=== PATIENT | female | born 1965 | race African-American/Black ===

== ENCOUNTER 2017-06-05 11:17 | Emergency (ER) | payer MEDICARE, OTHER ==
--- NOTE | 2017-06-05 12:18 | ER Document Report ---
HPI - HPI Patient complains to provider of: right shoulder pain Onset: Other Onset/Duration: Sudden Quality of pain: Achy Severity: Moderate Pain Level: 3 Context: Patient states she fell 2-1/2 weeks ago hitting her right shoulder. Complains of continued pain, although she states pain is less than what it was. Did not see her primary care physician. Associated Symptoms: None Exacerbated by: Movement Relieved by: Denies Similar symptoms previously: No Recently seen / treated by doctor: No - ROS ROS below otherwise negative: Yes Systems Reviewed and Negative: Yes All other systems reviewed and negative - CONSTITUTIONAL Constitutional: DENIES: Fever - EENT EENT: DENIES: Congestion - NEURO Neurology: DENIES: Headache - CARDIOVASCULAR Cardiovascular: DENIES: Chest pain - RESPIRATORY Respiratory: DENIES: Trouble Breathing - GASTROINTESTINAL Gastrointestinal: DENIES: Abdominal Pain - REPRODUCTIVE Reproductive: DENIES: : - MUSCULOSKELETAL Musculoskeletal: REPORTS: Extremity pain - right shoulder - DERM Skin Color: Normal Skin Problems: None Past Medical History - General Information source: Patient - Social History Smoking Status: Current Every Day Smoker Cigarette use (# per day): Yes Frequency of alcohol use: Occasional Drug Abuse: None Lives with: Family Family History: Other - Multiple family members have same complaints - Past Medical History Cardiac Medical History: Reports: Hx Hypercholesterolemia, Hx Hypertension Endocrine Medical History: Reports: Hx Diabetes Mellitus Type 2 Musculoskeltal Medical History: Reports Hx Arthritis, Reports Hx Musculoskeletal Deformity, Reports Hx Musculoskeletal Trauma Traumatic Medical History: Reports: Hx Fractures Past Surgical History: Reports: Hx Section - 2, Hx Neurologic Surgery - cyatic nerve, Hx Orthopedic Surgery - back surgery - Immunizations Immunizations up to date: Yes Hx Diphtheria, Pertussis, Tetanus Vaccination: Yes Vertical Provider Document - CONSTITUTIONAL Agree With Documented VS: Yes Exam Limitations: No Limitations General Appearance: WD/WN, No Apparent Distress - INFECTION CONTROL TRAVEL OUTSIDE OF THE [place] IN LAST 30 DAYS: No - HEENT HEENT: Atraumatic, Normocephalic - NECK Neck: Normal Inspection, Supple - RESPIRATORY Respiratory: Breath Sounds Normal, No Respiratory Distress O2 Sat by Pulse Oximetry: 100 - CARDIOVASCULAR Cardiovascular: Regular Rate, Regular Rhythm - MUSCULOSKELETAL/EXTREMETIES Musculoskeletal/Extremeties: Tender - right shoulder joint, pain with ROM, No Edema. negative: Eccymosis - NEURO Level of Consciousness: Awake, Alert, Appropriate - DERM Integumentary: Warm, Dry, No Rash Course - Re-evaluation Re-evalutation: 06/05/17 13:05 X-rays negative and discussed with patient - Vital Signs Vital signs: Temp Pulse Resp BP Pulse Ox 98.0 F 109 H 18 134/94 H 100 06/05/17 11:23 06/05/17 11:23 06/05/17 11:23 06/05/17 11:23 06/05/17 11:23 Discharge - Discharge Clinical Impression: Contusion of right shoulder Qualifiers: Encounter type: initial encounter Qualified Code(s): S40.011A - Contusion of right shoulder, initial encounter Condition: Good Disposition: HOME, SELF-CARE Additional Instructions: Ice or heat packs to sore area Ibuprofen as prescribed as needed for pain Follow-up with your doctor next week for recheck Return as needed Prescriptions: Ibuprofen 800 mg PO PRN PRN #20 tablet PRN Reason:
--- NOTE | 2017-06-05 12:56 | RADIOLOGY REPORT (SQ) ---
EXAM DESCRIPTION: SHOULDER RIGHT 2 OR MORE VIEWS COMPLETED DATE/TIME: 06/05/2017 12:45 pm REASON FOR STUDY: fall COMPARISON: None. NUMBER OF VIEWS: Three views. TECHNIQUE: Internal rotation, external rotation, and Y view images acquired of the right shoulder. LIMITATIONS: None. FINDINGS: MINERALIZATION: Normal. BONES: No acute fracture or dislocation. No worrisome bone lesions. JOINTS: No glenohumeral dislocation. Acromioclavicular joint unremarkable VISUALIZED LUNGS AND RIBS: No pneumothorax. No rib fracture. SOFT TISSUES: No radiopaque foreign body. OTHER: No other significant finding. IMPRESSION: NEGATIVE STUDY OF THE RIGHT SHOULDER. NO RADIOGRAPHIC EVIDENCE OF ACUTE INJURY. TECHNICAL DOCUMENTATION: JOB ID: [id number] [employer]- All Rights Reserved
[2017-06-05 14:08] VITALS: BP 132/90
== END 2017-06-05 13:45 | disposition home or self-care (01) ==
LOC: ER 11:17
DX: S40.011A Contusion of right shoulder, initial encounter (principal); M25.511 Pain in right shoulder; W19.XXXA Unspecified fall, initial encounter; F17.210 Nicotine dependence, cigarettes, uncomplicated
CPT/HCPCS: 99283

== ENCOUNTER 2020-01-17 16:37 | Inpatient (IN) | payer MEDICARE, OTHER ==
--- NOTE | 2020-01-17 16:53 | ER Document Report ---
ED Medical Screen (RME) - General Stated Complaint: POSSIBLE ALLERGIC REACTION Time Seen by Provider: 01/17/20 16:44 Primary Care Provider: RAINE WILD FNP [Primary Care Provider] - Follow up as needed Mode of Arrival: Ambulatory Information source: Patient Notes: Patient is a 54-year-old female presenting to the emergency department with concerns for an allergic reaction. Upon interviewing patient patient actually has signs and symptoms of a stroke. Patient reports she has numbness to the entire right side of her body from her face all the way down into her upper extremity and lower extremity all on the right side. She reports this is been present for approximately 3 days. She thought that this may have been related to eating crab cakes although she ate crab cakes after the onset of symptoms and she has never had a reaction to seafood in the past. She does have slurred speech, she does have a slight right-sided facial droop and has altered sensation on her right side as outlined above. I have greeted and performed a rapid initial assessment of this patient. A comprehensive ED assessment and evaluation of the patient, analysis of test results and completion of the medical decision making process will be conducted by additional ED providers. I have specifically instructed the patient or family members with the patient to immediately return to any nursing staff should anything change in the patient's condition or with their chief complaint. TRAVEL OUTSIDE OF THE [place] IN LAST 30 DAYS: No - Related Data Allergies/Adverse Reactions: lisinopril [Lisinopril] Allergy (Verified 06/05/17 11:22) Edema mushrooms Allergy (Unknown, Uncoded 06/05/17 11:22) Past Medical History - Past Medical History Cardiac Medical History: Reports: Hx Hypercholesterolemia, Hx Hypertension Endocrine Medical History: Reports: Hx Diabetes Mellitus Type 2 Renal/ Medical History: Denies: Hx Peritoneal Dialysis Musculoskeltal Medical History: Reports Hx Arthritis, Reports Hx Musculoskeletal Deformity, Reports Hx Musculoskeletal Trauma Traumatic Medical History: Reports: Hx Fractures Past Surgical History: Reports: Hx Section - 2, Hx Neurologic Surgery - cyatic nerve, Hx Orthopedic Surgery - back surgery - Immunizations Immunizations up to date: Yes Hx Diphtheria, Pertussis, Tetanus Vaccination: Yes Physical Exam - Vital signs Vitals: Temp Pulse Resp BP Pulse Ox 98.3 F 107 H 20 147/95 H 99 01/17/20 16:44 01/17/20 16:44 01/17/20 16:44 01/17/20 16:44 01/17/20 16:44 Course - Vital Signs Vital signs: Temp Pulse Resp BP Pulse Ox 98.3 F 107 H 20 147/95 H 99 01/17/20 16:44 01/17/20 16:44 01/17/20 16:44 01/17/20 16:44 01/17/20 16:44 Doctor's Discharge - Discharge Referrals: RAINE WILD FNP [Primary Care Provider] - Follow up as needed
--- NOTE | 2020-01-17 17:13 | ER Document Report ---
ED Neuro Symptoms/Deficit - General Chief Complaint: S/S of Possible Stroke Stated Complaint: POSSIBLE ALLERGIC REACTION Time Seen by Provider: 01/17/20 16:44 Primary Care Provider: RAINE WILD FNP [Primary Care Provider] - Follow up as needed Mode of Arrival: Ambulatory Notes: 84-year-old female presents with 4-day history of right face arm and leg numbness. The patient states she thought she was having an allergic reaction to crab cakes. She did however state after reflecting on this that she started having symptoms before. Complained of a little bit of numbness around the face that is progressed to the arm and leg. There is been going on now for 4 days and the patient figured she should have it checked. She denies any headache. Complains of numbness and tingling to the right face, right arm and right leg. Denies any weakness or trouble walking. Denies any trouble talking or mentating. The patient denies chest pain denies shortness of breath. Speaking with the patient states she is never had a stroke before but she stated for about 4 months prior she had occasional left face tingling that comes and goes but does not stay for any appreciable period of time. The patient denies any falls trauma or head injuries. Denies any illicit drug use. Nothing makes it better or worse. TRAVEL OUTSIDE OF THE [place] IN LAST 30 DAYS: No - Related Data Allergies/Adverse Reactions: lisinopril [Lisinopril] Allergy (Verified 06/05/17 11:22) Edema mushrooms Allergy (Unknown, Uncoded 06/05/17 11:22) Past Medical History - General Information source: Patient - Social History Smoking Status: Current Every Day Smoker Family History: Other - Multiple family members have same complaints Patient has suicidal ideation: No Patient has homicidal ideation: No - Past Medical History Cardiac Medical History: Reports: Hx Hypercholesterolemia, Hx Hypertension Endocrine Medical History: Reports: Hx Diabetes Mellitus Type 2 Renal/ Medical History: Denies: Hx Peritoneal Dialysis Musculoskeletal Medical History: Reports Hx Arthritis, Reports Hx Musculoskeletal Deformity, Reports Hx Musculoskeletal Trauma Traumatic Medical History: Reports: Hx Fractures Past Surgical History: Reports: Hx Section - 2, Hx Neurologic Surgery - cyatic nerve, Hx Orthopedic Surgery - back surgery - Immunizations Immunizations up to date: Yes Hx Diphtheria, Pertussis, Tetanus Vaccination: Yes Review of Systems - Review of Systems Constitutional: No symptoms reported EENT: No symptoms reported Cardiovascular: No symptoms reported Respiratory: No symptoms reported Gastrointestinal: No symptoms reported Genitourinary: No symptoms reported Female Genitourinary: No symptoms reported Musculoskeletal: No symptoms reported Neurological/Psychological: Numbness, Tingling. denies: Weakness, Loss of power, Headaches -: Yes All other systems reviewed and negative Physical Exam - Vital signs Vitals: Temp Pulse Resp BP Pulse Ox 98.3 F 107 H 20 147/95 H 99 01/17/20 16:44 01/17/20 16:44 01/17/20 16:44 01/17/20 16:44 01/17/20 16:44 - Notes Notes: GENERAL_APPEARANCE: well_nourished, alert, cooperative VITALS: reviewed, see vital signs table. HEAD: no_swelling\\tenderness on the head. EYES: PERRL, EOMI, conjunctiva_clear. NOSE: no_nasal_discharge. MOUTH: (-)decreased moisture. THROAT: no_tonsilar_inflammation, no_airway_obstruction. no_lymphadenopathy NECK: supple, no_neck_tenderness, (-)thyromegaly. BACK: no_back_tenderness. CHEST_WALL: no_chest_tenderness. LUNGS: no_wheezing, no_rales, no_rhonchi, (-)accessory muscle use, good air exchange bilateral. HEART: normal_rate, normal_rhythm, normal_S1, normal_S2, (-)S3, (-)S4, no_murmur, no_rub. ABDOMEN: soft, no_abd_tenderness, (-)guarding, (-)rebound, no_organomegaly, no_abd_masses. EXTREMITIES: strength 5/5 in all_extremities, good pulses in all_extremities, no_swelling\\tenderness in the extremities, no_edema. SKIN: warm, dry, good_color, no_rash. MENTAL_STATUS: speech_clear, oriented_X_3, normal_affect, re sponds_appropriately to questions. NEURO: Subjective right face right arm and right leg numbness and tingling, neg Motor Deficits on exam, CN 2-12 intact, DTR 2+ symmetric x 4, No cerbellar signs NIH=1 due to mild loss of sensation on the right face right arm and right leg Course - Re-evaluation Re-evalutation: 01/17/20 17:14 The patient has been having Tums consistently for the last 4 days. The patient is not a candidate for TPA or interventional stroke care. Her stroke score is only 1 at this time due to the sensory deficiency. We will do a full stroke work-up. She has very mild symptoms and likely does not have any large vessel occlusions. The patient is not a very good historian. She tends to be very tangential. 01/17/20 20:[address] shows old infarcts. They do not see anything new. There is a small meningioma which is likely incidental. The patient likely has a completed infarct. The patient will need to be evaluated MRI in the morning echo cardiogram. 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 Patient will need to be started on dual antiplatelet therapy. Need to review the patient's blood pressure medicine regimen to be sure she is optimized to prevent any further episodes. - Vital Signs Vital signs: Temp Pulse Resp BP Pulse Ox 98.3 F 107 H 20 147/95 H 99 01/17/20 16:44 01/17/20 16:44 01/17/20 16:44 01/17/20 16:44 01/17/20 16:44 - Laboratory Result Diagrams: 01/17/20 17:38 01/17/20 17:38 - Diagnostic Test Radiology reviewed: Reports reviewed Radiology results interpreted by me: 01/17/20 20:57 Chest X-Ray 01/17/20 16:51 IMPRESSION: 1. No ACUTE RADIOGRAPHIC FINDING IN THE CHEST. 2. A new partially visualize posterior mediastinal mass on the left best seen on the PA image. Further evaluation with CT chest with IV contrast. Head CT 01/17/20 16:51 IMPRESSION: 1. No acute intracranial abnormality. 2. Very small old remote bilateral thalamic infarct. 3. A homogeneous right frontal lobe extra-axial sclerotic right frontal lobe mass. Considerations for this finding includes meningioma. 4. Chronic mild bilateral maxillary sinus disease. Small mucous retention cyst or polyp in the right maxillary sinus. EVIDENCE OF ACUTE STROKE: NO. Chest CT 01/17/20 19:03 IMPRESSION: 1. No suspicious mass in the lower chest as was questioned chest x-ray. No acute findings in the chest. 2. Diffusely enlarged partially visualized thyroid gland. Can be evaluated with ultrasound if clinically suspicious.. ED NIH Stroke Scale - NIH Stroke Scale *: 1. NIH scale should be completed with appropriate accompanying assessment tools. *: 2. The NIH should reflect what the patient is capable of doing and should not be coached by the clinician. 1a. Level of Consciousness: 0=Alert;keenly responsive -: 1=Drowsy -: 2=Obtunded -: 3=Coma/unresponsive or reflex to noxious stimuli. 1a. Responses: 0 1b. Orientation Questions: a. What month is it? -: b. How old are you? -: 0=Answers both questions correctly. -: 1=Answers one question correctly or patient is intubated or has orotracheal trauma. -: 2=Answers neither question correctly. 1b. Responses: 0 1c. Response to commands: a. Open and close eyes? -: b. [employer] Operator and release hand? -: Credit is given despite weakness. Demonstration of task is permitted. Substitute command if hands cannot be used. -: 0=Performs both tasks correctly -: 1=Performs one task correctly -: 2=Performs neither task correctly 1c. Responses: 0 2. Gaze: Establish eye contact and instruct patient to "Follow my finger" -: 0=Normal -: 1=Partial gaze palsy. Gaze is abnormal in one or both eyes, but where forced deviation or total gaze paresis is not present. -: 2=Forced deviation or total gaze paresis. 2. Responses: 0 3. Visual Betancourt: Sees fingers in all four quadrants. -: 0=No visual loss. -: 1=Partial hemianopsia. -: 2=Complete hemianopsia. -: 3=Bilateral hemianopsia (including Cortical blindness) 3. Responses: 0 4. Facial Movement: Instruct patient to: -: a. Show me your teeth -: b. Raise your eyebrows -: c. Close your eyes -: d. Smile -: 0=Normal symmetrical movement -: 1=Minor paralysis (flattened nasolabial fold, asymmetry on smiling). -: 2=Partial paralysis (total or near total paralysis of lower face). -: 3=Complete paralysis of upper and lower face 4. Responses: 0 5. Motor functions (left arm): Alternate sides and extend each arm with palms down (90 degrees if sitting or 45 degrees for supine). -: 0=No drift;limb holds for full 10 seconds. -: 1=Drift; limb holds but drifts down before full 10 seconds, but does not hit bed. -: 2=Some effort against gravity; limb cannot get to or maintain position. -: 3=No effort against gravity; limb falls. -: 4=No movement. -: UN=Amputation, joint fusion, explain in comments. 5. Responses (left arm): 0 5. Motor Functions (right arm): Alternate sides and extend each arm with palms down (90 degrees if sitting or 45 degrees for supine). -: 0=No drift;limb holds for full 10 seconds. -: 1=Drift; limb holds but drifts down before full 10 seconds, but does not hit bed. -: 2=Some effort against gravity; limb cannot get to or maintain position. -: 3=No effort against gravity; limb falls. -: 4=No movement. -: UN=Amputation, joint fusion, explain in comments. 5. Responses (right arm): 0 6. Motor Functions (left leg): With patient lying supine, alternate sides and extend each leg (30 degrees always while supine). -: 0=No drift, leg holds position for full 5 seconds -: 1=Drift; leg falls before full 5 seconds but does not hit bed. -: 2=Some effort against gravity, leg falls to bed but some effort against gravity. -: 3=No effort against gravity, leg falls to bed immediately. -: 4=No movement. -: UN=Amputation, joint fusion; explain in comments. 6. Responses (left leg): 0 6. Motor Functions (right leg): With patient lying supine, alternate sides and e xtend each leg (30 degrees always while supine). -: 0=No drift, leg holds position for full 5 seconds -: 1=Drift; leg falls before full 5 seconds but does not hit bed. -: 2=Some effort against gravity, leg falls to bed but some effort against gravity. -: 3=No effort against gravity, leg falls to bed immediately. -: 4=No movement. -: UN=Amputation, joint fusion; explain in comments. 6. Responses (right leg): 0 7. Limb Ataxia: With eyes open instruct patient to: -: a. "Touch your finger to your nose". -: b. "Touch your heel to your vizcarra" -: 0=Absent -: 1=Present in one limb. -: 2=Present in two limbs. -: UN=Amputation or joint fusion; explain in comments. 7. Responses: 0 8. Sensory: Test sensation using pinprick or noxious stimuli. Test as many body parts as possible. -: 0=Normal;no sensory loss -: 1=Mile to moderate sensory loss (patient feels pin prick but is less sharp on affected side). -: 2=Severe or total sensory loss. 8. Responses: 1 9. Best Language: Instruct patient to: -: a. "Describe what you see in this picture." -: b. "Name the items in this picture." -: c. "Read these sentences." -: 0=No aphasia, normal -: 1=Mild to moderate aphasia. -: 2=Severe aphasia -: 3=Mute, global aphasia, no usable speech or auditory comprehension. 9. Responses: 0 10. Articulation, Dysarthia: Instruct patient to: -: "Read these words" or "Repeat these words" -: 0=Normal -: 1=Mild to moderate; patient may slur some words but can be understood without difficulty. -: 2=Severe; patients speech so slurred as to be unintelligible in the absence of dysphasia. -: UN=Intubated or other physical barrier, explain in comments. 10. Responses: 0 11. Extinction or inattention: 0=No abnormality -: 1= Visual, tactile, auditory, spatial, or personal inattention or extinction to bilateral simulation in one or the sensory modalities. -: 2=Profound laquita-inattention or laquita-inattention to more than one modality; does not recognize own hand. 11. Responses: 0 Total Score: 1 Discharge - Discharge Clinical Impression: CVA (cerebral vascular accident) Qualifiers: CVA mechanism: other Qualified Code(s): I63.89 - Other cerebral infarction Condition: Good Disposition: ADMITTED OBSERVATION Admitting Provider: Juan (Hospitalist) Unit Admitted: Telemetry Referrals: RAINE WILD FNP [Primary Care Provider] - Follow up as needed
--- NOTE | 2020-01-17 17:16 | ER Document Report ---
Doctor's Note Notes: 01/17/20 17:15 Per radiologist no acute stroke noted on CT
--- NOTE | 2020-01-17 17:25 | RADIOLOGY REPORT (SQ) ---
EXAM DESCRIPTION: CT HEAD WITHOUT IMAGES COMPLETED DATE/TIME: 01/17/2020 5:00 pm REASON FOR STUDY: stroke alert COMPARISON: None. TECHNIQUE: Axial images acquired through the brain without intravenous contrast. Images reviewed wi th bone, brain and subdural windows. Additional sagittal and coronal reconstructions were generated. Images stored on PACS. All CT scanners at this facility use dose modulation, iterative reconstruction, and/or weight based d osing when appropriate to reduce radiation dose to as low as reasonably achievable (ALARA). [facility]: Dose Right [facility]: CareDose [facility]: Dose Right [facility]: Teradose 4D [facility]: Smart [employer] RADIATION DOSE: CT Rad equipment meets quality standard of care and radiation dose reduction techniq ues were employed. CTDIvol: 53.2 mGy. DLP: 964 mGy-cm. LIMITATIONS: None. FINDINGS: VENTRICLES: Normal size and contour. CEREBRUM: Very small old remote bilateral thalamic infarct. No masses. No hemorrhage. No midline shift. No evidence for acute infarction. CEREBELLUM: No masses. No hemorrhage. No alteration of density. No evidence for acute infarction. EXTRAAXIAL SPACES: No extra-axial fluid collections. ORBITS AND GLOBE: No intra- or extraconal masses. Normal contour of globe without masses. CALVARIUM: No fracture. An extra-axial day 9-10.0 mm homogeneous sclerotic right frontal lobe mass. Considerations for this finding includes meningioma. PARANASAL SINUSES: Mild mucoperiosteal thickening bilateral maxillary sinuses. Small mucous retenti on cyst or polyp in the right maxillary sinus. No fluid. SOFT TISSUES: No mass or hematoma. OTHER: Torus mandibular palatinus. IMPRESSION: 1. No acute intracranial abnormality. 2. Very small old remote bilateral thalamic infarct. 3. A homogeneous right frontal lobe extra-axial sclerotic right frontal lobe mass. Considerations f or this finding includes meningioma. 4. Chronic mild bilateral maxillary sinus disease. Small mucous retention cyst or polyp in the right maxillary sinus. EVIDENCE OF ACUTE STROKE: NO. COMMENT: 1. The results of this examination were discussed with emergency department provider on at 17:16 hours. Quality ID # [id number]: Final reports with documentation of one or more dose reduction techniques (e.g., Au tomated exposure control, adjustment of the mA and/or kV according to patient size, use of iterative reconstruction technique) TECHNICAL DOCUMENTATION: JOB ID: [id number] 2010 [employer]- All Rights Reserved Reading location - IP/workstation name: [email or web address]
--- NOTE | 2020-01-17 17:28 | RADIOLOGY REPORT (SQ) ---
EXAM DESCRIPTION: CHEST SINGLE VIEW IMAGES COMPLETED DATE/TIME: 01/17/2020 5:02 pm REASON FOR STUDY: stroke alert COMPARISON: None. EXAM PARAMETERS: NUMBER OF VIEWS: One view. TECHNIQUE: Single frontal radiographic view of the chest acquired. RADIATION DOSE: NA LIMITATIONS: None. FINDINGS: LUNGS AND PLEURA: No opacities, masses or pneumothorax. No pleural effusion. MEDIASTINUM AND HILAR STRUCTURES: A new partially visualized posterior mediastinum mass on the left best seen on the PA image. No masses. Contour normal. HEART AND VASCULAR STRUCTURES: Heart normal in size. Normal vasculature. BONES: No acute findings. HARDWARE: None in the chest. OTHER: No other significant finding. IMPRESSION: 1. No ACUTE RADIOGRAPHIC FINDING IN THE CHEST. 2. A new partially visualize posterior mediastinal mass on the left best seen on the PA image. Furt her evaluation with CT chest with IV contrast. TECHNICAL DOCUMENTATION: JOB ID: [id number] 2010 [employer]- All Rights Reserved Reading location - IP/workstation name: [email or web address]
[2020-01-17 17:54] LABS: INTERNATIONAL RATION (INR) 0.89
[2020-01-17 17:55] LABS: PARTIAL THROMBOPLASTIN TIME 26.7 SEC (23.5-35.8)
[2020-01-17 17:56] LABS: ABSOLUTE EOSINOPHILS # (AUTO) 0.2 10^3/uL (0.0-0.6); ABSOLUTE LYMPHOCYTES (AUTO) 1.7 10^3/uL (0.5-4.7); ABSOLUTE MONOCYTES (AUTO) 0.4 10^3/uL (0.1-1.4); ABSOLUTE NEUT (AUTO) 2.9 10^3/uL (1.7-8.2); BASOPHILS % (AUTO) 0.7 % (0-2); EOSINOPHILS % (AUTO) 4.1 % (0-6); HEMATOCRIT 39.5 % (36.0-47.0); HEMOGLOBIN 13.7 g/dL (12.0-15.5); MEAN CORPUSCULAR HEMOGLOBIN 30.8 pg (27.0-33.4); MEAN CORPUSCULAR HGB CONC 34.6 g/dL (32.0-36.0); MEAN CORPUSCULAR VOLUME 89 fl (80-97); MONOCYTES % (AUTO) 7.2 % (3-13); PLATELET COUNT 285 10^3/uL (150-450); RED BLOOD COUNT 4.45 10^6/uL (3.72-5.28); RED CELL DISTRIBUTION WIDTH 14.1 % (11.5-14.0); TOTAL CELLS COUNTED % (AUTO) 100 %; WHITE BLOOD COUNT 5.3 10^3/uL (4.0-10.5)
[2020-01-17 18:09] LABS: ALBUMIN 4.2 g/dL (3.5-5.0); ALKALINE PHOSPHATASE 129 U/L (38-126); ANION GAP 9 (5-19); ASPARTATE AMINO TRANSFERASE 22 U/L (14-36); BILIRUBIN,TOTAL 0.4 mg/dL (0.2-1.3); BLOOD UREA NITROGEN 15 mg/dL (7-20); CALCIUM 9.6 mg/dL (8.4-10.2); CARBON DIOXIDE 24 mmol/L (22-30); CHLORIDE 105 mmol/L (98-107); CREATINE KINASE 105 U/L (30-135); GLUCOSE 244 mg/dL (75-110); POTASSIUM 4.7 mmol/L (3.6-5.0); TOTAL PROTEIN 7.7 g/dL (6.3-8.2)
[2020-01-17 18:21] LABS: CREATINE KINASE MB 1.61 ng/mL (<4.55); TROPONIN I 0.018 ng/mL
[2020-01-17 19:07] LABS: APPEARANCE,URINE CLEAR; BILIRUBIN,URINE NEGATIVE (NEGATIVE); COLOR,URINE STRAW; GLUCOSE, URINE >=500 mg/dL (NEGATIVE); KETONES,URINE NEGATIVE (NEGATIVE); LEUKOCYTE ESTERASE,URINE NEGATIVE (NEGATIVE); NITRITE,URINE NEGATIVE (NEGATIVE); PROTEIN,URINE 30 mg/dL (NEGATIVE); URINE SPECIFIC GRAVITY 1.022; UROBILINOGEN,URINE NEGATIVE mg/dL (<2.0)
[2020-01-17] MEDS ORDERED: ASPIRIN 81 MG TABLET, CHEWABLE PO ONE (19:17)
[2020-01-17 19:21] LABS: URINE AMPHETAMINES SCREEN NEGATIVE; URINE BARBITURATES SCREEN NEGATIVE; URINE BENZODIAZEPINES SCREEN NEGATIVE; URINE COCAINE SCREEN NEGATIVE; URINE MARIJUANA (THC) SCREEN NEGATIVE; URINE METHADONE SCREEN NEGATIVE; URINE PHENCYCLIDINE SCREEN NEGATIVE
--- NOTE | 2020-01-17 20:29 | RADIOLOGY REPORT (SQ) ---
EXAM DESCRIPTION: CT chest with IV contrast. CLINICAL HISTORY: 54 years Female mass abnormal chest x-ray COMPARISON: Chest x-ray from today TECHNIQUE: Axial images with 100 mL of Omnipaque 350. Sagittal coronal reconstruction. This exam was performed according to our departmental dose-optimization program, which includes automated exposure control, adjustment of the mA and/or kV according to patient size and/or use of iterative reconstruction technique.. FINDINGS: Unremarkable Central pulmonary arteries. Nondilated aorta without dissection. No evidence for mediastinal adenopathy or pericardial effusion. Diffuse enlarged partially visualized bilateral thyroid. On the images provided the left facet appears larger. No suspicious lung or pleural abnormalities. No suspicious lower chest mass or upper abdominal mass. IMPRESSION: 1. No suspicious mass in the lower chest as was questioned chest x-ray. No acute findings in the chest. 2. Diffusely enlarged partially visualized thyroid gland. Can be evaluated with ultrasound if clinically suspicious..
[2020-01-17] MEDS ORDERED: MAGNESIUM HYDROXIDE SUSP 30 ML UDCUP PO PRN (21:29)
[2020-01-17] MEDS ORDERED: ONDANSETRON 4 MG TAB.RAPDIS PO PRN (21:29)
[2020-01-17] MEDS ORDERED: DOCUSATE SODIUM 100 MG CAPSULE PO PRN (21:29)
[2020-01-17] MEDS ORDERED: LORAZEPAM INJ 2 MG/1 ML VIAL IV PRN (21:33)
[2020-01-17] MEDS ORDERED: MAG HYDROX/AL HYDROX/SIMETH SUSP 30 ML UDCUP PO PRN (21:33)
[2020-01-17] MEDS ORDERED: GLUCAGON,HUMAN RECOMB 1 MG INJ IM PRN (21:33)
[2020-01-17] MEDS ORDERED: INSULIN REG, HUMAN 100 UNIT/ML 3 ML VIAL (PYX) SUBCUT PRN (21:33)
[2020-01-17] MEDS ORDERED: DEXTROSE 40% GEL 15 GM TUBE PO PRN ×2 (21:33)
[2020-01-17] MEDS ORDERED: DEXTROSE 50%-WATER 25 GM/50 ML DISP.SYRIN IV PRN ×2 (21:33)
[2020-01-17] MEDS ORDERED: ACETAMINOPHEN 325 MG TABLET PO PRN (21:33)
[2020-01-17] MEDS ORDERED: HYDRALAZINE HCL INJ/PF 20 MG/1 ML SDV IV PRN (21:33)
--- NOTE | 2020-01-17 22:38 | RADIOLOGY REPORT (SQ) ---
EXAM DESCRIPTION: MRI of the brain without gadolinium CLINICAL HISTORY: 54 years Female; Right-sided numbness TECHNIQUE: Routine noncontrast MRI brain protocol COMPARISON: Unenhanced CT scan of the brain obtained earlier in the day FINDINGS: Diffusion: In the left thalamus is a focal area of restricted diffusion that measures approximately 10 mm in diameter. This has restricted diffusion and is low signal on ADC mapping indicating an acute area of ischemia/infarction. Brain: On FLAIR images there are scattered areas of increased signal on the periventricular white matter bilaterally. These are nonspecific but suggestive of small vessel ischemic change. They are prominent for this patient's age. No blood products are seen. No mass lesions. No abnormal extra-axial fluid collections or midline shift. There appears to be an old lacunar infarct in the right basal ganglion. The small extra-axial mass adjacent to the right inner surface of the frontal bone is not well appreciated on this exam. Skull: Calvarial marrow is normal. Orbits and paranasal sinuses: Paranasal sinuses and mastoid air cells are clear. Visualized portions of the orbits are normal. Vessels: Normal flow-voids are seen in the major intracranial arteries. IMPRESSION: 1. Focal area of acute restricted diffusion in the left thalamus consistent with an acute lacunar infarct. 2. Old lacunar infarct in the right thalamus. 3. Scattered areas of increased signal in the periventricular white matter which is prominent for this patient's age. A demyelinating process cannot be excluded. 4. Small extra-axial hyperdense area on CT scan adjacent to the right frontal lobe is not well seen on this exam.
[2020-01-17] MEDS: FAMOTIDINE 20 MG TABLET PO SCH (22:44)
[2020-01-17] MEDS: HEPARIN SOD (PORCINE) 5,000 UNIT/ML 1 ML VIAL SUBCUT SCH (22:44)
[2020-01-18] MEDS ORDERED: NICOTINE 7 MG/24 HR PATCH.TD24 TD PRN (00:29)
--- NOTE | 2020-01-18 00:29 | PDOC H&P ---
History of Present Illness Admission Date/PCP: 01/17/2020 20:45 DONIS HAN Patient complains of: Right-sided numbness History of Present Illness: TAINA TOM is a 54 year old, [id number], female who presented to the emergency room with a 4-day history of right sided numbness. She admits developing numbness first on the right side of her face and then within a few minutes it had rapidly spread over the entire right side of her body 4 days ago. The numbness is severe and is described as markedly decreased or absent light touch sensation on the entire right side of her anatomy. Her numbness is accompanied by a tingling sensation in the same area and is associated with intermittent episodes of drooling and slight slurring of her speech. She initially had attributed the symptoms to an allergy to crab cakes however in retrospect felt that her facial numbness had begun prior to eating the crab cakes in question. She denies other associated or accompanying signs and symptoms. She denies prior similar episodes. She has not identified any aggravating or ameliorating factors for her right-sided numbness. In the emergency room her symptoms persisted and a CT scan of the head showed no evidence of stroke. The emergency room physician did not feel comfortable discharging the patient home and therefore she was admitted observation status for further evaluation. Past Medical History Cardiac Medical History: Reports: Hyperlipidema, Hypertension Pulmonary Medical History: Denies: Asthma, Chronic Obstructive Pulmonary Disease (COPD) EENT Medical History: Reports: Eyes - Corrective lenses Denies: Cataracts, Ears - Hearing aids Neurological Medical History: Denies: Hemorrhagic CVA, Ischemic CVA, Seizures Endocrine Medical History: Reports: Diabetes Mellitus Type 2, Obesity Denies: Diabetes Mellitus Type 1, Hyperthyroidism, Hypothyroidism Renal/ Medical History: Denies: Chronic Kidney Disease, Nephrolithiasis Malignancy Medical History: Reports: None GI Medical History: Denies: Cirrhosis, Crohn's Disease, Hepatitis, Ulcerative Colitis Musculoskeltal Medical History: Reports: Arthritis Denies: Gout Skin Medical History: Denies: Eczema, Psoriasis Psychiatric Medical History: Reports: Tobacco Dependency Denies: Alcohol Dependency, Substance Abuse Traumatic Medical History: Reports: None Hematology: Denies: Anemia, Bleeding Tendencies Infectious Medical History: Reports: None Past Surgical History Past Surgical History: Reports: Section - X2, Orthopedic Surgery - back surgery, Tubal Ligation Social History Information Source: Patient Lives with: Spouse/Significant other Smoking Status: Current Every Day Smoker Cigarettes Packs Per Day: 0.1 Electronic Cigarette use?: No Frequency of Alcohol Use: Occasional Hx Recreational Drug Use: No Drugs: None Hx Prescription Drug Abuse: No - Advance Directive Resuscitation Status: Full Code Surrogate healthcare decision maker:: Taina Daniels Family History Family History: Arthritis, CAD, DM, Hyperlipidemia, Hypertension, Malignancy Parental Family History Reviewed: Yes Children Family History Reviewed: No Sibling(s) Family History Reviewed.: Yes Medication/Allergy Home Medications: Celecoxib [Celebrex 200 mg Capsule] 200 mg PO DAILY 11/11/13 Cyclobenzaprine HCl 10 mg PO Q8HP PRN 11/11/13 Hydrocodone/Acetaminophen [[place] 10-325 mg Tablet] 1 tab PO QIDP PRN 11/11/13 Exenatide Microspheres [Bydureon Pen] 2 mg SQ Q7D 11/05/14 Lidocaine [Lidoderm 5% (700 mg) Transdermal Patch] 1 patch TP DAILY PRN 11/05/14 Diclofenac Sodium 4 gm TP QIDP PRN 01/17/20 Empagliflozin [Jardiance] 10 mg PO DAILY 01/17/20 Fluticasone Propionate [Flonase Nasal Mcgrath 50 Mcg/Mcgrath 16 gm] 1 spray NAREB DAILY 01/17/20 Losartan Potassium 100 mg PO DAILY 01/17/20 Metformin HCl [Metformin HCl ER] 1,000 mg PO BID 01/17/20 Nateglinide [Starlix 60 mg Tablet] 60 mg PO Q12 01/17/20 Pioglitazone HCl [Actos 15 mg Tablet] 15 mg PO DAILY 01/17/20 Allergies/Adverse Reactions: lisinopril [Lisinopril] Allergy (Verified 06/05/17 11:22) Edema mushrooms Allergy (Unknown, Uncoded 06/05/17 11:22) Review of Systems Constitutional: ABSENT: chills, fever(s) Eyes: ABSENT: visual disturbances, other - Eye pain Ears: ABSENT: hearing changes, other - Ear pain Nose, Mouth, and Throat: ABSENT: headache(s), mouth pain, sore throat Cardiovascular: ABSENT: chest pain, palpitations Respiratory: ABSENT: cough, dyspnea Gastrointestinal: PRESENT: heartburn. ABSENT: abdominal pain, constipation, diarrhea, nausea, vomiting Genitourinary: ABSENT: dysuria, hematuria Musculoskeletal: ABSENT: back pain, joint swelling Integumentary: ABSENT: pruritus, rash Neurological: PRESENT: as per HPI, abnormal speech, numbness, tingling. ABSENT: confusion, convulsions, focal weakness, memory loss, syncope Psychiatric: ABSENT: anxiety, depression Endocrine: ABSENT: cold intolerance, heat intolerance, polydipsia, polyphagia, polyuria Hematologic/Lymphatic: ABSENT: easy bleeding, easy bruising Allergic/Immunologic: ABSENT: seasonal rhinorrhea Physical Exam Vital Signs: Temp Pulse Resp BP Pulse Ox 98.3 F 104 H 25 H 163/90 H 96 01/17/20 16:44 01/17/20 17:00 01/17/20 19:00 01/17/20 18:48 01/17/20 18:48 Intake & Output 01/15/20 01/16/20 01/17/20 23:59 23:59 23:59 Weight 81.8 kg General appearance: PRESENT: no acute distress, cooperative Head exam: PRESENT: atraumatic, normocephalic Eye exam: PRESENT: conjunctiva pink. ABSENT: conjunctival injection, scleral i cterus Ear exam: PRESENT: normal external ear exam. ABSENT: bleeding, drainage Mouth exam: PRESENT: dry mucosa, neck supple Neck exam: ABSENT: thyromegaly, tracheal deviation Respiratory exam: PRESENT: symmetrical, unlabored Cardiovascular exam: PRESENT: RRR. ABSENT: clicks, gallop, rubs Pulses: PRESENT: normal carotid pulses, normal radial pulses, normal dorsalis pedis pul Vascular exam: PRESENT: normal capillary refill GI/Abdominal exam: PRESENT: normal bowel sounds, soft. ABSENT: tenderness Rectal exam: PRESENT: deferred Extremities exam: ABSENT: joint swelling, pedal edema Musculoskeletal exam: ABSENT: deformity, dislocation Neurological exam: PRESENT: alert, oriented to person, oriented to place, oriented to time, oriented to situation, motor sensory deficit - Decreased light touch sensation (subjectively) on sensory exam of the entire right side. Mild decrease in right rug scratcher strength and right lower extremity strength by comparison to left on exam. Psychiatric exam: PRESENT: appropriate affect, normal mood Skin exam: PRESENT: dry, intact, warm. ABSENT: jaundice, rash, urticaria Results Laboratory Results: 01/17/20 17:38 01/17/20 17:38 01/17/20 01/17/20 01/17/20 17:38 17:38 18:38 WBC 5.3 RBC 4.45 Hgb 13.7 Hct 39.5 MCV 89 MCH 30.8 MCHC 34.6 RDW 14.1 H Plt Count 285 Seg Neutrophils % 56.0 Sodium 138.2 Potassium 4.7 Chloride 105 Carbon Dioxide 24 Anion Gap 9 BUN 15 Creatinine 0.86 Est GFR ( Amer) > 60 Glucose 244 H Calcium 9.6 Total Bilirubin 0.4 AST 22 Alkaline Phosphatase 129 H Total Protein 7.7 Albumin 4.2 Urine Color STRAW Urine Appearance CLEAR Urine pH 7.0 Ur Specific [place] 1.022 Urine Protein 30 H Urine Glucose (UA) >=500 H Urine Ketones NEGATIVE Urine Blood NEGATIVE Urine Nitrite NEGATIVE Ur Leukocyte Esterase NEGATIVE Urine WBC (Auto) 0 Urine RBC (Auto) 1 01/17/20 01/17/20 17:38 17:38 Creatine Kinase 105 CK-MB (CK-2) 1.61 Troponin I 0.018 Impressions: Chest X-Ray 01/17/20 16:51 IMPRESSION: 1. No ACUTE RADIOGRAPHIC FINDING IN THE CHEST. 2. A new partially visualize posterior mediastinal mass on the left best seen on the PA image. Further evaluation with CT chest with IV contrast. Head CT 01/17/20 16:51 IMPRESSION: 1. No acute intracranial abnormality. 2. Very small old remote bilateral thalamic infarct. 3. A homogeneous right frontal lobe extra-axial sclerotic right frontal lobe mass. Considerations for this finding includes meningioma. 4. Chronic mild bilateral maxillary sinus disease. Small mucous retention cyst or polyp in the right maxillary sinus. EVIDENCE OF ACUTE STROKE: NO. Chest CT 01/17/20 19:03 IMPRESSION: 1. No suspicious mass in the lower chest as was questioned chest x-ray. No acute findings in the chest. 2. Diffusely enlarged partially visualized thyroid gland. Can be evaluated with ultrasound if clinically suspicious.. Assessment and Plan - Diagnosis (1) Tobacco use disorder, moderate, dependence Is this a current diagnosis for this admission?: Yes (2) Hypertension Qualifiers: Hypertension type: essential hypertension Qualified Code(s): I10 - Essential (primary) hypertension Is this a current diagnosis for this admission?: Yes (3) Hyperlipidemia Qualifiers: Hyperlipidemia type: unspecified Qualified Code(s): E78.5 - Hyperlipidemia, unspecified Is this a current diagnosis for this admission?: Yes (4) Right sided numbness Is this a current diagnosis for this admission?: Yes (5) Diabetes mellitus type 2 in obese Is this a current diagnosis for this admission?: Yes (6) Diabetic peripheral neuropathy associated with type 2 diabetes mellitus Is this a current diagnosis for this admission?: Yes (7) Polyosteoarthritis, unspecified Qualifiers: Osteoarthritis type: unspecified Qualified Code(s): M15.9 - Polyosteoarthritis, unspecified Is this a current diagnosis for this admission?: Yes - Plan Summary Summary: Patient will be placed in observation status and MRI of the head will be performed as soon as possible. Carotid Doppler studies will also be obtained. Patient will be placed on the stroke protocol though, due to the length of time since the onset of symptoms and the absence of significant motor deficits, she is expected to be discharged after her MRI results are available and appropriate referral back to her primary care provider, for any further evaluation and ongoing treatment, has been arranged. She will receive usual supportive and symptomatic cares. She will be started on Plavix 75 mg p.o. daily empirically. She will be continued on her usual home medications as appropriate. Before meals and at bedtime Accu-Cheks will be obtained with sliding scale insulin for hyperglycemia and a hypoglycemic protocol in place. Patient will have a diabetic and cardiac restricted diet. She will use Ativan 1 mg IV every 4 hours as needed for anxiety or restlessness. Smoking cessation is advised and counseled briefly at the bedside. A nicotine replacement patch will be available for the patient's use, if required. A TSH, lipid profile and hemoglobin A1c will be obtained in the morning. - Time Time Spent with patient: 25-34 minutes Smoking Cessation Education: 3 to 10 minutes Medications reviewed and adjusted accordingly: Yes Anticipated discharge: Home Within: within 24 hours - Inpatient Certification Based on my medical assessment, after consideration of the patient's comorbidities, presenting symptoms, or acuity I expect that the services needed warrant INPATIENT care.: No I certify that my determination is in accordance with my understanding of Medicare's requirements for reasonable and necessary INPATIENT services [42 CFR 412.3e].: No Medical Necessity: Risk of Diagnosis Which Will Require Inpatient Eval/Care/Monitoring
[2020-01-18] MEDS ORDERED: INFLUENZA QUAD (6MOS+) 2019-20 VAC 0.5 ML SYR IM ONE (04:23)
[2020-01-18] MEDS: HEPARIN SOD (PORCINE) 5,000 UNIT/ML 1 ML VIAL SUBCUT SCH ×2 (05:31→15:00)
[2020-01-18 06:02] LABS: CHOLESTEROL 215.75 mg/dL (0-200); TRIGLYCERIDES 318 mg/dL (<150)
[2020-01-18 06:13] LABS: DIRECT LDL 124 mg/dL (<100)
[2020-01-18 06:18] LABS: VLDL CHOLESTEROL 63.6 mg/dL (10-31)
--- NOTE | 2020-01-18 08:26 | EKG REPORT ---
SEVERITY:- BORDERLINE ECG - SINUS RHYTHM LEFT AXIS DEVIATION BORDERLINE PROLONGED QT INTERVAL : Confirmed by: Deisi Fitzgerald 18-Jan-2020 08:26:01
--- NOTE | 2020-01-18 09:57 | RADIOLOGY REPORT (SQ) ---
EXAM DESCRIPTION: CAROTID DOPPLER IMAGES COMPLETED DATE/TIME: 01/18/2020 9:36 am REASON FOR STUDY: Right-sided numbness COMPARISON: None. TECHNIQUE: Grayscale ultrasound, Doppler velocity and spectra, and color Doppler images acquired of the extra-cranial carotid and vertebral arteries. Images stored on PACS. LIMITATIONS: None. FINDINGS: RIGHT CAROTID CCA Velocities: Within normal limits. ICA Velocities Peak systolic 79 cm/s. End diastolic 31 cm/s. Proximal ICA/CCA peak systolic ratio 0.6. Grayscale without significant luminal stenosis. Normal waveform. LEFT CAROTID CCA Velocities: Within normal limits. ICA Velocities Peak systolic 127 cm/s. End diastolic 55 cm/s. Proximal ICA/CCA peak systolic ratio 1.0. Grayscale demonstrates tortuous distal ICA which accounts for mild velocity elevation. No significan t luminal stenosis. Mild hypoechoic plaque. VERTEBRAL ARTERIES: Antegrade flow. Normal waveforms. SUBCLAVIAN ARTERIES: Not imaged. OTHER: No other significant finding. IMPRESSION: 1. No hemodynamically significant stenosis. 2. Antegrade vertebral arteries. COMMENT: Quality ID #[id number]: Velocity criteria are extrapolated from the diameter data as defined by t [place] [employer] in Ultrasound Consensus Conference. Radiology 2003: 229; 340-346. TECHNICAL DOCUMENTATION: JOB ID: [id number] 2010 [employer]- All Rights Reserved Reading location - IP/workstation name: [email or web address]
[2020-01-18] MEDS ORDERED: CLOPIDOGREL BISULFATE 75 MG TABLET PO SCH (10:00)
[2020-01-18] MEDS: FAMOTIDINE 20 MG TABLET PO SCH (10:31)
--- NOTE | 2020-01-18 15:00 | PDOC DISCHARGE SUMMARY ---
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 Carotid Doppler studies will also be obtained. Patient will be placed on the stroke protocol though, due to the length of time since the onset of symptoms and the absence of significant motor deficits, she is expected to be discharged after her MRI results are available and appropriate referral back to her primary care provider, for any further evaluation and ongoing treatment, has been arranged. She will receive usual supportive and symptomatic cares. She will be started on Plavix 75 mg p.o. daily empirically. She will be continued on her usual home medications as appropriate. Before meals and at bedtime Accu-Cheks will be obtained with sliding scale insulin for hyperglycemia and a hypoglycemic protocol in place. Patient will have a diabetic and cardiac restricted diet. She will use Ativan 1 mg IV every 4 hours as needed for anxiety or restlessness. Smoking cessation is advised and counseled briefly at the bedside. A nicotine replacement patch will be available for the patient's use, if required. A TSH, lipid profile and hemoglobin A1c will be obtained in the morning. - Additional Information Resuscitation Status: Full Code Discharge Diet: Cardiac, Diabetic Discharge Activity: Activity As Tolerated Referrals: RAINE WILD FNP [Primary Care Provider] - Follow up as needed (Called office and left message for a follow up appt. on [employer] machine. myh/[email or web address]) Prescriptions: Atorvastatin Calcium [Lipitor 40 mg Tablet] 40 mg PO QHS #30 tablet Clopidogrel Bisulfate [Plavix 75 mg Tablet] 75 mg PO DAILY #30 tablet Home Medications: Celecoxib [Celebrex 200 mg Capsule] 200 mg PO DAILY 11/11/13 Cyclobenzaprine HCl 10 mg PO Q8HP PRN 11/11/13 Hydrocodone/Acetaminophen [[place]nam 10-325 mg Tablet] 1 tab PO QIDP PRN 11/11/13 Exenatide Microspheres [Bydureon Pen] 2 mg SQ DELGADO@1000 11/05/14 Diclofenac Sodium 4 gm TP QIDP PRN 01/17/20 Empagliflozin [Jardiance] 10 mg PO DAILY 01/17/20 Fluticasone Propionate [Flonase Nasal [place] 50 Mcg/[place] 16 gm] 1 spray NAREB DAILY 01/17/20 Losartan Potassium 100 mg PO DAILY 01/17/20 Metformin HCl [Metformin HCl ER] 1,000 mg PO BID 01/17/20 Nateglinide [Starlix 60 mg Tablet] 60 mg PO Q12 01/17/20 Pioglitazone HCl [Actos 15 mg Tablet] 15 mg PO DAILY 01/17/20 Atorvastatin Calcium [Lipitor 40 mg Tablet] 40 mg PO QHS #30 tablet 01/18/20 Clopidogrel Bisulfate [Plavix 75 mg Tablet] 75 mg PO DAILY #30 tablet 01/18/20 Nicotine [Nicoderm 7 mg/24 Hr Transdermal Patch] 1 each TD DAILYP PRN patch.[id number] 01/18/20 History of Present Illiness History of Present Illness: RICK TOM is a 54 year old female, [id number], female who presented to the emergency room with a 4-day history of right sided numbness. She admits developing numbness first on the right side of her face and then within a few minutes it had rapidly spread over the entire right side of her body 4 days ago. The numbness is severe and is described as markedly decreased or absent light touch sensation on the entire right side of her anatomy. Her numbness is accompanied by a tingling sensation in the same area and is associated with intermittent episodes of drooling and slight slurring of her speech. She initially had attributed the symptoms to an allergy to crab cakes however in retrospect felt that her facial numbness had begun prior to eating the crab cakes in question. She denies other associated or accompanying signs and symptoms. She denies prior similar episodes. She has not identified any aggravating or ameliorating factors for her right-sided numbness. In the emergency room her symptoms persisted and a CT scan of the head showed no evidence of stroke. The emergency room physician did not feel comfortable discharging the patient home and therefore she was admitted observation status for further evaluation. Hospital Course Hospital Course: The patient had a benign hospital course. She still had some numbness and tingling however she was able to walk 150 feet with contact-guard assist. She is stable for discharge home and I have ordered physical therapy through home health. Physical Exam Vital Signs: Temp Pulse Resp BP Pulse Ox 97.4 F 103 H 15 156/92 H 94 01/18/20 10:58 01/18/20 12:00 01/18/20 12:00 01/18/20 12:00 01/18/20 12:00 Intake & Output 01/17/20 01/18/20 01/19/20 06:59 06:59 06:59 Intake Total 280 Balance 280 Weight 83.3 kg General appearance: PRESENT: no acute distress Head exam: PRESENT: atraumatic, normocephalic Respiratory exam: PRESENT: clear to auscultation alen, symmetrical, unlabored. ABSENT: accessory muscle use, prolonged expiratory phas, rales, rhonchi, tachypnea, wheezes Cardiovascular exam: PRESENT: RRR, +S1, +S2 GI/Abdominal exam: PRESENT: normal bowel sounds, soft. ABSENT: tenderness Neurological exam: PRESENT: alert, awake, oriented to person, oriented to place, oriented to time, oriented to situation, CN II-XII grossly intact, motor sensory deficit - Still with decreased sensation in the right arm. ABSENT: altered Psychiatric exam: PRESENT: appropriate affect. ABSENT: agitated, anxious Results Laboratory Results: WBC 5.3 10^3/uL (4.0-10.5) 01/17/20 17:38 RBC 4.45 10^6/uL (3.72-5.28) 01/17/20 17:38 Hgb 13.7 g/dL (12.0-15.5) 01/17/20 17:38 Hct 39.5 % (36.0-47.0) 01/17/20 17:38 MCV 89 fl (80-97) 01/17/20 17:38 MCH 30.8 pg (27.0-33.4) 01/17/20 17:38 MCHC 34.6 g/dL (32.0-36.0) 01/17/20 17:38 RDW 14.1 % (11.5-14.0) H 01/17/20 17:38 Plt Count 285 10^3/uL (150-450) 01/17/20 17:38 Lymph % (Auto) 32.0 % (13-45) 01/17/20 17:38 [place] % (Auto) 7.2 % (3-13) 01/17/20 17:38 Eos % (Auto) 4.1 % (0-6) 01/17/20 17:38 Baso % (Auto) 0.7 % (0-2) 01/17/20 17:38 Absolute Neuts (auto) 2.9 10^3/uL (1.7-8.2) 01/17/20 17:38 Absolute Lymphs (auto) 1.7 10^3/uL (0.5-4.7) 01/17/20 17:38 Absolute Monos (auto) 0.4 10^3/uL (0.1-1.4) 01/17/20 17:38 Absolute Eos (auto) 0.2 10^3/uL (0.0-0.6) 01/17/20 17:38 Absolute Basos (auto) 0.0 10^3/uL (0.0-0.2) 01/17/20 17:38 Seg Neutrophils % 56.0 % (42-78) 01/17/20 17:38 PT 12.0 SEC (11.4-15.4) 01/17/20 17:38 INR 0.89 01/17/20 17:38 APTT 26.7 SEC (23.5-35.8) 01/17/20 17:38 Sodium 138.2 mmol/L (137-145) 01/17/20 17:38 Potassium 4.7 mmol/L (3.6-5.0) 01/17/20 17:38 Chloride 105 mmol/L (98-107) 01/17/20 17:38 Carbon Dioxide 24 mmol/L (22-30) 01/17/20 17:38 Anion Gap 9 (5-19) 01/17/20 17:38 BUN 15 mg/dL (7-20) 01/17/20 17:38 Creatinine 0.86 mg/dL (0.52-1.25) 01/17/20 17:38 Est GFR ( Amer) > 60 (>60) 01/17/20 17:38 Est GFR (MDRD) Non-Af > 60 (>60) 01/17/20 17:38 Glucose 244 mg/dL (75-110) H 01/17/20 17:38 POC Glucose 127 mg/dL (70-110) H 01/18/20 11:02 Hemoglobin A1c % 10.5 % (4.7-6.0) H 01/18/20 04:39 Calcium 9.6 mg/dL (8.4-10.2) 01/17/20 17:38 Total Bilirubin 0.4 mg/dL (0.2-1.3) 01/17/20 17:38 Direct Bilirubin 0.0 mg/dL (0.0-0.4) 01/17/20 17:38 Neonat Total Bilirubin Not Reportable 01/17/20 17:38 Neonat Direct Bilirubin Not Reportable 01/17/20 17:38 Neonat Indirect Bili Not Reportable 01/17/20 17:38 AST 22 U/L (14-36) 01/17/20 17:38 ALT 17 U/L (<35) 01/17/20 17:38 Alkaline Phosphatase 129 U/L (38-126) H 01/17/20 17:38 Creatine Kinase 105 U/L (30-135) 01/17/20 17:38 CK-MB (CK-2) 1.61 ng/mL (<4.55) 01/17/20 17:38 Troponin I 0.018 ng/mL 01/17/20 17:38 Total Protein 7.7 g/dL (6.3-8.2) 01/17/20 17:38 Albumin 4.2 g/dL (3.5-5.0) 01/17/20 17:38 Triglycerides 318 mg/dL (<150) H 01/18/20 04:39 Cholesterol 215.75 mg/dL (0-200) H 01/18/20 04:39 LDL Cholesterol Direct 124 mg/dL (<100) H 01/18/20 04:39 VLDL Cholesterol 63.6 mg/dL (10-31) H 01/18/20 04:39 HDL Cholesterol 53 mg/dL (>40) 01/18/20 04:39 TSH 0.33 uIU/mL (0.47-4.68) L 01/18/20 04:39 Urine Color STRAW 01/17/20 18:38 Urine Appearance CLEAR 01/17/20 18:38 Urine pH 7.0 (5.0-9.0) 01/17/20 18:38 Ur Specific [place] 1.022 01/17/20 18:38 Urine Protein 30 mg/dL (NEGATIVE) H 01/17/20 18:38 Urine Glucose (UA) >=500 mg/dL (NEGATIVE) H 01/17/20 18:38 Urine Ketones NEGATIVE mg/dL (NEGATIVE) 01/17/20 18:38 Urine Blood NEGATIVE (NEGATIVE) 01/17/20 18:38 Urine Nitrite NEGATIVE (NEGATIVE) 01/17/20 18:38 Urine Bilirubin NEGATIVE (NEGATIVE) 01/17/20 18:38 Urine Urobilinogen NEGATIVE mg/dL (<2.0) 01/17/20 18:38 Ur Leukocyte Esterase NEGATIVE (NEGATIVE) 01/17/20 18:38 Urine WBC (Auto) 0 /HPF 01/17/20 18:38 Urine RBC (Auto) 1 /HPF 01/17/20 18:38 Squamous Epi Cells Auto 1 /HPF 01/17/20 18:38 Urine Mucus (Auto) RARE /LPF 01/17/20 18:38 Urine Ascorbic Acid NEGATIVE (NEGATIVE) 01/17/20 18:38 Urine Opiates Screen NEGATIVE 01/17/20 18:38 Urine Methadone Screen NEGATIVE 01/17/20 18:38 Ur Barbiturates Screen NEGATIVE 01/17/20 18:38 Ur Phencyclidine Scrn NEGATIVE 01/17/20 18:38 Ur Amphetamines Screen NEGATIVE 01/17/20 18:38 U Benzodiazepines Scrn NEGATIVE 01/17/20 18:38 Urine Cocaine Screen NEGATIVE 01/17/20 18:38 U Marijuana (THC) Screen NEGATIVE 01/17/20 18:38 01/17/20 17:38 CK-MB (CK-2) 1.61 Troponin I 0.018 Impressions: Head MRI 01/17/20 00:00 IMPRESSION: 1. Focal area of acute restricted diffusion in the left thalamus consistent with an acute lacunar infarct. 2. Old lacunar infarct in the right thalamus. 3. Scattered areas of increased signal in the periventricular white matter which is prominent for this patient's age. A demyelinating process cannot be excluded. 4. Small extra-axial hyperdense area on CT scan adjacent to the right frontal lobe is not well seen on this exam. Chest X-Ray 01/17/20 16:51 IMPRESSION: 1. No ACUTE RADIOGRAPHIC FINDING IN THE CHEST. 2. A new partially visualize posterior mediastinal mass on the left best seen on the PA image. Further evaluation with CT chest with IV contrast. Head CT 01/17/20 16:51 IMPRESSION: 1. No acute intracranial abnormality. 2. Very small old remote bilateral thalamic infarct. 3. A homogeneous right frontal lobe extra-axial sclerotic right frontal lobe mass. Considerations for this finding includes meningioma. 4. Chronic mild bilateral maxillary sinus disease. Small mucous retention cyst or polyp in the right maxillary sinus. EVIDENCE OF ACUTE STROKE: NO. Chest CT 01/17/20 19:03 IMPRESSION: 1. No suspicious mass in the lower chest as was questioned chest x-ray. No acute findings in the chest. 2. Diffusely enlarged partially visualized thyroid gland. Can be evaluated with ultrasound if clinically suspicious.. Carotid Doppler Study 01/18/20 21:27 IMPRESSION: 1. No hemodynamically significant stenosis. 2. Antegrade vertebral arteries. Plan Health Concerns: Significant hypercholesterolemia with hypertension in a smoker. Statin therapy started. Smoking cessation encouraged. Plan of Treatment: Discharge to home with physical therapy through home health. Goals: Improved ambulation. Return of normal sensation in the right arm Time Spent: Greater than 30 Minutes Stroke Is this a Stroke Patient?: Yes Stroke Pt being discharged on Anti-thrombolytic therapy?: Yes Stroke Pt being discharged on Anti-coagulation therapy?: No Reason(s) for not prescribing Anti-coagulation therapy:: Not indicated Stroke Pt being discharged on Statins?: Yes Acute Heart Failure - Is this a Heart Failure Patient?: No
[2020-01-18 17:25] VITALS: BP 152/85
== END 2020-01-18 18:27 | disposition home health service (06) | DRG 65 ==
LOC: ER 16:37 → EH 21:03 → 3W 23:05 → OBSVTOIN 01-18 13:56
PROVIDERS: ADMIT Emergency Medicine; ATTEND Hospitalist
DX: I63.89 Other cerebral infarction (principal); G45.0 Vertebro-basilar artery syndrome; R20.0 Anesthesia of skin; I10 Essential (primary) hypertension; E11.65 Type 2 diabetes mellitus with hyperglycemia; E78.5 Hyperlipidemia, unspecified; R47.81 Slurred speech; E78.00 Pure hypercholesterolemia, unspecified; E66.9 Obesity, unspecified; M15.9 Polyosteoarthritis, unspecified; E11.42 Type 2 diabetes mellitus with diabetic polyneuropathy; F17.210 Nicotine dependence, cigarettes, uncomplicated; R29.701 NIHSS score 1; Z79.4 Long term (current) use of insulin; Z79.899 Other long term (current) drug therapy; Z79.84 Long term (current) use of oral hypoglycemic drugs; Z88.8 Allergy status to other drugs, medicaments and biological substances; Z91.018 Allergy to other foods; Z82.61 Family history of arthritis; Z82.49 Family history of ischemic heart disease and other diseases of the circulatory system
CPT/HCPCS: 36415; 70450; 70551; 71045; 71260; 80053; 80061; 80307; 81001; 82550; 82553; 82962; 83036; 84443; 84484; 85025; 85610; 85730; 93005; 93010; 93880; 99285; G0378; J1644; J1815; J3490